=== PATIENT | male | born 1955 | race African-American/Black ===

== ENCOUNTER 2022-03-03 05:38 | Inpatient (IN) | payer MEDICARE, MEDICAID ==
[~2022-03-03] VITALS: Ht 188 cm; Wt 74.8 kg
[2022-03-03] MEDS ORDERED: LACTATED RINGERS 1,000 ML IV SCH (06:15)
[2022-03-03] MEDS ORDERED: PROPOFOL 200MG/20ML VIAL IV ONE (07:28)
[2022-03-03] MEDS ORDERED: FENTANYL CITRATE/PF 50MCG/ML 2ML VIAL ONE ×2 (07:29→07:57)
[2022-03-03] MEDS ORDERED: MIDAZOLAM HCL 2 MG/2 ML VIAL ONE (07:29)
[2022-03-03] MEDS ORDERED: DEXAMETHASONE 4MG/ML 1ML VIAL ONE (07:40)
[2022-03-03] MEDS ORDERED: GLYCOPYRROLATE 0.2 MG/ML 2ML VIAL ONE (07:42)
[2022-03-03] MEDS ORDERED: PHENYLEPHRINE HCL 10 MG/ML 1ML (IV VIAL) IV ONE (07:44)
[2022-03-03] MEDS ORDERED: EPHEDRINE SULFATE 50MG/ML VIAL ONE (07:45)
[2022-03-03] MEDS ORDERED: ONDANSETRON HCL 4MG/2ML INJ IV PRN (08:30)
[2022-03-03] MEDS ORDERED: OPIUM/BELLADONNA ALKALOIDS 30/16.2MG SUPP PR PRN (08:45)
[2022-03-03] MEDS ORDERED: OXYBUTYNIN CHLORIDE 5MG TABLET PO SCH (09:00)
[2022-03-03] MEDS: FENTANYL CITRATE/PF 50MCG/ML 2ML VIAL IV PRN ×3 (09:24→13:56)
[2022-03-03] MEDS ORDERED: FINA1TAB18 PO (09:53)
[2022-03-03] MEDS ORDERED: ALBU18HF2 IH (09:53)
[2022-03-03] MEDS ORDERED: TIOT18CA3 IH (09:53)
[2022-03-03] MEDS ORDERED: EZET10TA13 PO (09:53)
[2022-03-03] MEDS ORDERED: LOSA25TA26 PO (09:53)
[2022-03-03] MEDS ORDERED: ASPI-1497 PO (09:53)
[2022-03-03] MEDS ORDERED: ATOR10TA69 PO (09:53)
[2022-03-03] MEDS ORDERED: TAMS-11 PO (09:53)
[2022-03-03] MEDS ORDERED: HYDR-4009 PO (09:53)
[2022-03-03] MEDS ORDERED: NALOXONE HCL 0.4MG/ML VIAL IV PRN (14:00)
[2022-03-03] MEDS: HYDROCODONE/ACETAMINOPHEN 10/325MG TABLET PO PRN (16:25)
[2022-03-03] MEDS ORDERED: LORAZEPAM 1MG TABLET PO PRN (19:45)
[2022-03-03] MEDS ORDERED: OXYBUTYNIN CHLORIDE 5MG TABLET PO PRN (19:45)
[2022-03-03] MEDS ORDERED: DEXT 5%/0.45% NACL 1000ML 1,000 ML IV SCH (19:45)
[2022-03-03] MEDS ORDERED: HYDROCODONE/ACETAMINOPHEN 10/325MG TABLET PO PRN (19:45)
[2022-03-03] MEDS ORDERED: MAGNESIUM HYDROXIDE 400MG/5ML 30ML UDC PO PRN (19:45)
[2022-03-03 20:00] VITALS: BP 115/58
[2022-03-03 20:40] VITALS: BP 115/58
[2022-03-03] MEDS: CEFAZOLIN 1000MG PREMIX 50 ML IV SCH (21:14)
[2022-03-03] MEDS: EZETIMIBE 10MG TABLET PO SCH (21:14)
[2022-03-03] MEDS: DEXT 5%/0.45% NACL 1000ML 1,000 ML IV SCH (21:14)
[2022-03-04] VITALS: BP 109/56
[2022-03-04 04:00] VITALS: BP 118/67
[2022-03-04] MEDS: CEFAZOLIN 1000MG PREMIX 50 ML IV SCH (05:31)
[2022-03-04] MEDS: HYDROCODONE/ACETAMINOPHEN 10/325MG TABLET PO PRN (05:32)
[2022-03-04 08:00] VITALS: BP 121/52
[2022-03-04] MEDS: EZETIMIBE 10MG TABLET PO SCH (08:32)
[2022-03-04] MEDS: DEXT 5%/0.45% NACL 1000ML 1,000 ML IV SCH (08:32)
[2022-03-04] MEDS ORDERED: LEVOFLOXACIN 500MG TABLET PO NR (09:00)
[2022-03-04 10:54] VITALS: BP 121/52
== END 2022-03-04 12:19 | disposition home or self-care (01) | DRG 669 ==
LOC: OR 05:38 → 6EST 18:55
PROVIDERS: ADMIT Urology; ATTEND Urology
PROC: 0TBB8ZX Excision of Bladder, Via Natural or Artificial Opening Endoscopic, Diagnostic (ICD-10-PCS; principal; 2022-03-03)
DX: D49.4 Neoplasm of unspecified behavior of bladder (principal); N39.0 Urinary tract infection, site not specified; E78.00 Pure hypercholesterolemia, unspecified; Z20.822 Contact with and (suspected) exposure to COVID-19; I10 Essential (primary) hypertension; M19.90 Unspecified osteoarthritis, unspecified site; Z80.3 Family history of malignant neoplasm of breast; Z82.49 Family history of ischemic heart disease and other diseases of the circulatory system
CPT/HCPCS: 71045; 87426; 88305; 93005; C9803; J0690; J1100; J2250; J2370; J2405; J2704; J3010; J3490